=== PATIENT | female | born 1955 | race Caucasian/White ===

== ENCOUNTER 2018-10-19 10:20 | Inpatient (IN) | payer OTHER ==
[~2018-10-19] VITALS: Ht 162.6 cm; Wt 70.3 kg
[2018-11-07] MEDS ORDERED: ATORVASTATIN CA20 MG PO (07:49)
[2018-11-10] MEDS ORDERED: OMEPRAZOLE20 M1 PO (08:46)
[2018-11-10] MEDS ORDERED: INTESTINEX680 M1 PO (08:46)
[2018-11-10] MEDS ORDERED: PERCOCET 5-3251 EACH PO (08:46)
== END 2018-11-10 10:51 | disposition home or self-care (01) | DRG 329 ==
LOC: O/R 11-07 05:19 → SURG 11-07 05:19
PROVIDERS: ADMIT Surgery
PROC: 0DTN4ZZ Resection of Sigmoid Colon, Percutaneous Endoscopic Approach (ICD-10-PCS; principal; 2018-11-07 10:45)
DX: K57.20 Diverticulitis of large intestine with perforation and abscess without bleeding (principal); K65.1 Peritoneal abscess; N20.0 Calculus of kidney; F41.8 Other specified anxiety disorders

== ENCOUNTER 2019-09-17 07:46 | Day surgery (SDC) | payer OTHER ==
[~2019-09-17 07:46] MED LIST: ATORVASTATIN CA20 MG PO; INTESTINEX680 M1 PO; OMEPRAZOLE20 M1 PO; PERCOCET 5-3251 EACH PO
== END 2019-09-17 13:40 | disposition home or self-care (01) ==
LOC: AMB-ENDOS 07:46
PROVIDERS: ATTEND Surgery
DX: K62.89 Other specified diseases of anus and rectum (principal); Z20.828 Contact with and (suspected) exposure to other viral communicable diseases